=== PATIENT | male | born 1995 | race Caucasian/White ===

== ENCOUNTER → 2019-02-20 | Outpatient (REF) ==
[2019-02-20 17:36] LABS: RUBELLA IgG QUALITATIVE IMMUNE (IMMUNE)
[2019-02-22 08:43] LABS: HERPES ZOSTER, VARICELLA IgG <135 index (Immune >165); RUBEOLA IgG ANTIBODY 60.6 AU/mL (Immune >16.4)
== END ==
LOC: M LAB 15:49
PROVIDERS: ATTEND Nurse Practitioner Adult Health
DX: Z02.9 Encounter for administrative examinations, unspecified (principal)

== ENCOUNTER → 2019-06-13 | Outpatient (CLI) | payer BC | LOC: M LABSMTC 10:17 | PROVIDERS: ATTEND Family Medicine | DX: Z11.59 Encounter for screening for other viral diseases (principal); Z20.828 Contact with and (suspected) exposure to other viral communicable diseases ==

== ENCOUNTER → 2019-11-29 | Outpatient (CLI) | payer BC | LOC: M LABSMTC 11:54 | PROVIDERS: ATTEND Pediatrics | DX: Z20.828 Contact with and (suspected) exposure to other viral communicable diseases (principal) | CPT/HCPCS: C9803; U0003 ==

== ENCOUNTER 2020-04-03 16:14 | Emergency (ER) | payer OTHER, BC ==
[~2020-04-03] VITALS: Ht 180.3 cm; Wt 82.2 kg
[2020-04-03] MEDS ORDERED: ZYRTTAB8 PO (16:26)
[2020-04-03] MEDS ORDERED: vitamin d PO (16:26)
[2020-04-03] MEDS ORDERED: multi PO (16:26)
[2020-04-03 18:00] VITALS: BP 124/74
== END 2020-04-03 18:04 | disposition home or self-care (01) ==
LOC: M ED 16:14
DX: L25.3 Unspecified contact dermatitis due to other chemical products (principal); Z79.899 Other long term (current) drug therapy; Z88.0 Allergy status to penicillin